=== PATIENT | female | born 1930 | race Caucasian/White ===

== ENCOUNTER 2016-08-15 11:00 | Observation (INO) | payer MEDICARE ==
[~2016-08-15] VITALS: Ht 152.4 cm; Wt 77.0 kg
[2016-08-15] VITALS (7 sets, daily range): BP systolic 149–205; BP diastolic 70–88; PULSE 68–89; RESP 17–18; TEMP 97.7–99.2; O2SAT 96–99
[~2016-08-15 11:00] MED LIST: ASPI81TA82 PO; CARV6.252 PO; EZET10 PO; HYDR-2768 PO; ISOS60TA PO; LOSA25 PO; NITR0.4S SL; PANT40IN3 PO; ROSU40 PO; TICA90 PO
[2016-08-15] MEDS: SODIUM CHLORIDE 0.9% FLUSH 10 ML FLUSH IVF PRN ×2 (11:15→13:53)
--- NOTE | 2016-08-15 11:19 | PD ---
HPI Chief Complaint: Chest Pain Time Seen by Provider: 11:20 Travel History International Travel<30 days: No Contact w/Intl Traveler<30days: No Traveled to known affect area: No History of Present Illness HPI 86-year-old female with known history of coronary artery disease with previous cabg, pci, presents for evaluation of chest pain. Symptoms started sometime during the night several hours ago. She describes it as a sharp pain in the right lower portion of her chest inferior to her breast which comes and goes, lasting about 1 minute each time. No obvious aggravating or alleviating factors initially. She denies any associated symptoms such as shortness of breath, nausea or vomiting, abdominal pain, fevers or chills, flank pain, diaphoresis. She does endorse a dry cough. The pain does not radiate into her back, arms, neck. Her coding clerk is Dr. Alves. Her primary care physician is Dr. Gonzalez. No other complaints. PFSH Past Medical History Hx Anticoagulant Therapy: Yes (ASA, BRILINTA ) Arthritis: Yes Cancer: No Cardiac Catheterization: Yes Cardiovascular Problems: Yes High Cholesterol: Yes Chest Pain: Yes Diminished Hearing: No Endocrine: No Genitourinary: No Hypertension: Yes Immune Disorder: No Musculoskeletal: Yes Neurologic: No Reproductive: No Respiratory: No Menopausal: Yes Past Surgical History Appendectomy: Yes Cardiac Surgery: Yes (REMOVAL OF PERICARDIUM) Coronary Stent: Yes (X5) Tonsillectomy: Yes Other Surgery: Yes Social History Alcohol Use: No Tobacco Use: No Substance Use: No Allergies-Medications (Allergen,Severity, Reaction): Coded Allergies: No Known Allergies (Unverified , 08/15/16) Reported Meds & Prescriptions Reported Meds & Active Scripts Active Reported Pantoprazole (Pantoprazole Sodium) 40 Mg Tab 40 Mg PO DAILY Brilinta (Ticagrelor) 90 Mg Tab 90 Mg PO DAILY Aspirin 81 Mg Tabdr 81 Mg PO DAILY Carvedilol 6.25 Mg Tab 6.25 Mg PO BID Isosorbide Mononitrate ER (Isosorbide Mononitrate) 60 Mg Tab 60 Mg PO DAILY Zetia (Ezetimibe) 10 Mg Tab 10 Mg PO DAILY Losartan (Losartan Potassium) 25 Mg Tab 25 Mg PO DAILY Hydrochlorothiazide 25 Mg Tab 25 Mg PO DAILY Nitrostat SL (Nitroglycerin) 0.4 Mg Subl 0.4 Mg SL DIRECTED PRN 1 tablet under the tongue as needed for chest pain. Repeat every 5 minutes for a total of 3 DOSES or call 911 if NO relief. Crestor (Rosuvastatin Calcium) 40 Mg Tab 40 Mg PO DAILY Review of Systems Except as stated in HPI: all other systems reviewed are Neg Physical Exam Narrative GENERAL: Pleasant well-developed well-nourished female in no acute distress SKIN: Warm and dry. HEAD: Atraumatic. Normocephalic. EYES: Pupils equal and round. No scleral icterus. No injection or drainage. ENT: No nasal bleeding or discharge. Mucous membranes pink and moist. NECK: Trachea midline. No JVD. CARDIOVASCULAR: Regular rate and rhythm. No murmur appreciated. RESPIRATORY: No accessory muscle use. Clear to auscultation. Breath sounds equal bilaterally. GASTROINTESTINAL: Abdomen soft, focal right upper quadrant tenderness to palpation without guarding. MUSCULOSKELETAL: No obvious deformities. No edema. There is some tenderness to palpation to the right lower chest wall inferior to the breast. No rashes. NEUROLOGICAL: Awake and alert. No obvious cranial nerve deficits. Motor grossly within normal limits. Normal speech. PSYCHIATRIC: Appropriate mood and affect; insight and judgment normal. Data Data Last Documented VS Vital Signs Date Time Temp Pulse Resp B/P Pulse Ox O2 Delivery O2 Flow Rate FiO2 08/15/16 12:39 98.0 82 17 172/71 99 Room Air Orders Electrocardiogram (08/15/16 ) Electrocardiogram (08/15/16 11:15) Basic Metabolic Panel (Bmp) (08/15/16 11:15) Ckmb (Isoenzyme) Profile (08/15/16 11:15) Complete Blood Count With Diff (08/15/16 11:15) Magnesium (Mg) (08/15/16 11:15) Prothrombin Time / Inr (Pt) (08/15/16 11:15) Act Partial Throm Time (Ptt) (08/15/16 11:15) Troponin I (08/15/16 11:15) Lipase (08/15/16 11:15) Chest, Single Ap (08/15/16 11:15) Ecg Monitoring (08/15/16 11:15) Bilateral Bp Monitoring (08/15/16 11:15) Iv Access Insert/Monitor (08/15/16 11:15) Oximetry (08/15/16 11:15) Oxygen Administration (08/15/16 11:15) Sodium Chloride 0.9% Flush (Ns Flush) (08/15/16 11:15) Hepatic Functional Panel (08/15/16 11:24) D-Dimer (08/15/16 11:25) Us Abdomen Gallbladder (08/15/16 ) Aspirin Chew (Aspirin Chew) (08/15/16 11:30) Ct Pulmonary Angiogram (08/15/16 12:16) Iohexol 350 Inj (Omnipaque 350 Inj) (08/15/16 13:12) Labs Laboratory Tests Test 08/15/16 08/15/16 11:15 11:18 Prothrombin Time 9.7 SEC Prothromb Time International 0.9 RATIO Ratio Activated Partial 22.9 SEC Thromboplast Time White Blood Count 7.2 TH/MM3 Red Blood Count 5.01 MIL/MM3 Hemoglobin 13.8 GM/DL Hematocrit 41.4 % Mean Corpuscular Volume 82.7 FL Mean Corpuscular Hemoglobin 27.6 PG Mean Corpuscular Hemoglobin 33.4 % Concent Red Cell Distribution Width 16.2 % Platelet Count 256 TH/MM3 Mean Platelet Volume 7.3 FL Neutrophils (%) (Auto) 52.4 % Lymphocytes (%) (Auto) 33.2 % Monocytes (%) (Auto) 11.3 % Eosinophils (%) (Auto) 2.2 % Basophils (%) (Auto) 0.9 % Neutrophils # (Auto) 3.8 TH/MM3 Lymphocytes # (Auto) 2.4 TH/MM3 Monocytes # (Auto) 0.8 TH/MM3 Eosinophils # (Auto) 0.2 TH/MM3 Basophils # (Auto) 0.1 TH/MM3 CBC Comment DIFF FINAL Differential Comment D-Dimer Quantitative (PE/DVT) 2.20 MG/L FEU Sodium Level 141 MEQ/L Potassium Level 4.0 MEQ/L Chloride Level 107 MEQ/L Carbon Dioxide Level 26.0 MEQ/L Anion Gap 8 MEQ/L Blood Urea Nitrogen 16 MG/DL Creatinine 0.86 MG/DL Estimat Glomerular Filtration 62 ML/MIN Rate Random Glucose 103 MG/DL Calcium Level 8.8 MG/DL Magnesium Level 2.4 MG/DL Total Bilirubin 0.4 MG/DL Direct Bilirubin 0.1 MG/DL Indirect Bilirubin 0.3 MG/DL Aspartate Amino Transf 23 U/L (AST/SGOT) Alanine Aminotransferase 21 U/L (ALT/SGPT) Alkaline Phosphatase 127 U/L Total Creatine Kinase 96 U/L Troponin I LESS THAN 0.02 NG/ML Total Protein 7.3 GM/DL Albumin 3.4 GM/DL Lipase 221 U/L MDM Medical Decision Making Medical Screen Exam Complete: Yes Emergency Medical Condition: Yes Medical Record Reviewed: Yes Interpretation(s) EKG reveals normal sinus rhythm, no ST depression/elevation Chest x-ray CBC unremarkable BMP unremarkable Troponin negative CK negative D-dimer 2.2 CT pulmonary angiogram CONCLUSION: 1. No evidence for pulmonary embolism. 2. Minimal lingular consolidation could be related to parenchymal scarring. 3. Nodular scarring right lower lobe laterally. 4. 5 mm nodule right lower lobe, likely benign. 5. Coronary artery calcifications. 6. Small hiatal hernia. Differential Diagnosis Costochondritis, biliary colic, cholecystitis, pericarditis, myocarditis, acute coronary syndrome, unstable angina, myocarditis, pneumothorax, pulmonary embolism Narrative Course 86-year-old female presents with several hours of right-sided lower chest pain, intermittent in frequency. On examination the pain does appear to have a pleuritic component and therefore d-dimer has been added on. She does have reproducible tenderness to palpation the right upper quadrant of the abdomen as well as the right side lower chest wall. The patient was placed on ECG monitoring and pulse oximetry. 12-lead EKG was obtained. plan is for basic lab work, chest x-ray, right upper quadrant abdominal ultrasound. D-dimer was elevated at 2.2. Therefore CT pulmonary angiogram has been ordered. 1220: On reexamination the patient is denying any pain or any other symptoms right now. 1342: Upon reexamination the patient has returned, she reports that it has been waxing and waning. Therefore morphine has been ordered. The patient's lab work imaging studies have been reviewed and they reveal no acute abnormalities. Given her age, history of coronary disease, discussed with patient the option of being admitted to the chest pain center and she would prefer that. Therefore the patient is being admitted to the chest pain center for serial cardiac enzymes and rule out purposes. Procedures EKG Prior to Arrival: Yes Diagnosis Primary Impression: Atypical chest pain Admitting Information Admitting Physician Requests: Misha Hayes August 15, 2016 11:19
[2016-08-15] MEDS ORDERED: ASPI1TAB69 PO (11:30)
[2016-08-15] MEDS ORDERED: CARV6.252 PO (11:30)
[2016-08-15] MEDS ORDERED: ROSU40 PO (11:30)
[2016-08-15] MEDS ORDERED: ISOS60TA PO (11:30)
[2016-08-15] MEDS ORDERED: ZETI10TA5 PO (11:30)
[2016-08-15] MEDS ORDERED: BRIL90TA PO (11:30)
[2016-08-15] MEDS ORDERED: NITR0.4S SL (11:30)
[2016-08-15] MEDS ORDERED: PANT40TA3 PO (11:30)
[2016-08-15] MEDS ORDERED: HYDR25TA5 PO (11:30)
[2016-08-15] MEDS ORDERED: ASPIRIN 81 MG CHEW TAB PO ONE (11:30)
[2016-08-15] MEDS ORDERED: LOSA25TA PO (11:30)
--- NOTE | 2016-08-15 11:43 | RADRPT ---
EXAM DATE/TIME: 08/15/2016 11:21 [facility] COMPARISON: CHEST SINGLE AP, January 16, 2016, 13:38. INDICATIONS : Epigastric pain for several. MEDICAL HISTORY : Cardiovascular disease. Hypercholesterolemia. SURGICAL HISTORY : Appendectomy. Coronary artery stent. Removal of pericardium. ENCOUNTER: Initial ACUITY: 2 days PAIN SCORE: 8/10 LOCATION: Bilateral chest FINDINGS: A single view of the chest demonstrates the lungs to be symmetrically aerated without evidence of mas s, infiltrate or effusion. Cardiomegaly and previous CABG. The cardiomediastinal contours are unremar kable. Osseous structures are intact. CONCLUSION: Cardiomegaly and previous CABG. Isidoro Key MD on August 15, 2016 at 11:41 Board Certified Radiologist. This report was verified electronically.
[2016-08-15 11:45] LABS: AUTOMATED NEUTROPHIL # 3.8 TH/MM3 (1.8-7.7); BASOPHIL # 0.1 TH/MM3 (0-0.2); BASOPHIL % 0.9 % (0.0-2.0); EOSINOPHIL # 0.2 TH/MM3 (0-0.4); EOSINOPHIL % 2.2 % (0.0-4.0); HEMATOCRIT 41.4 % (35.0-46.0); HEMO FLAGS DIFF FINAL; LYMPH % 33.2 % (9.0-44.0); LYMPHOCYTE # 2.4 TH/MM3 (1.0-4.8); MEAN CELL VOLUME 82.7 FL (80.0-100.0); MEAN CORPUSCULAR HEMOGLOBIN 27.6 PG (27.0-34.0); MEAN CORPUSCULAR HGB CONC 33.4 % (32.0-36.0); MONO % 11.3 % (0.0-8.0); NEUT % 52.4 % (16.0-70.0); PLATELET COUNT 256 TH/MM3 (150-450); RED BLOOD COUNT 5.01 MIL/MM3 (4.00-5.30); RED CELL DISTRIBUTION WIDTH 16.2 % (11.6-17.2); WHITE BLOOD COUNT 7.2 TH/MM3 (4.0-11.0)
[2016-08-15 12:01] LABS: INDIRECT BILIRUBIN 0.3 MG/DL (0.0-0.8); TOTAL BILIRUBIN ADULT 0.4 MG/DL (0.2-1.0)
[2016-08-15 12:01] LABS: APTT (PATIENT) 22.9 SEC (24.3-30.1); INTERNATIONAL NORMALIZED RATIO 0.9 RATIO; PROTHROMBIN TIME - PATIENT 9.7 SEC (9.8-11.6)
[2016-08-15 12:09] LABS: ANION GAP 8 MEQ/L (5-15); BLOOD UREA NITROGEN 16 MG/DL (7-18); CHLORIDE 107 MEQ/L (98-107); GLOMERULAR FILTRATION RATE 62 ML/MIN (>89); MAGNESIUM 2.4 MG/DL (1.5-2.5); SODIUM (NA) 141 MEQ/L (136-145)
[2016-08-15 12:13] LABS: CREATINE KINASE 96 U/L (26-192)
--- NOTE | 2016-08-15 12:47 | RADRPT ---
EXAM DATE/TIME: 08/15/2016 11:41 [facility] COMPARISON: No previous studies available for comparison. INDICATIONS : Right upper quadrant pain. MEDICAL HISTORY : Hypertension. Cardiovascular disease. Hypercholesterolemia. SURGICAL HISTORY : Appendectomy. Cholecystectomy. Cardiac stents. ENCOUNTER: Initial ACUITY: 1 day PAIN SCORE: 8/10 LOCATION: Right upper quadrant MEASUREMENTS: LIVER: 14.3 cm length COMMON DUCT: 4 mm RIGHT KIDNEY: 9.1 x 4.4 x 4.6 cm FINDINGS: LIVER: Normal echotexture without focal lesion or ductal dilatation. COMMON DUCT: No intraluminal mass or stone visualized. GALLBLADDER: Contains no stones, demonstrates no wall thickening or pericholecystic fluid. PANCREAS: The visualized portions are within normal limits. RIGHT KIDNEY: No evidence of hydronephrosis, stone, or mass. CONCLUSION: Normal examination. Riaz Godwin MD on August 15, 2016 at 12:43 Board Certified Radiologist. This report was verified electronically.
[2016-08-15] MEDS ORDERED: IOHEXOL 350 MG/ML 10 ML VIAL (for RAD DIAG) IV ONE (13:12)
--- NOTE | 2016-08-15 13:36 | RADRPT ---
EXAM DATE/TIME: 08/15/2016 13:09 [facility] COMPARISON: CT PULMONARY ANGIOGRAM, January 12, 2016, 17:59. INDICATIONS : Right sided chest pain since yesterday,evaluate for pulmonary emoblism. IV CONTRAST: 55 cc Omnipaque 350 (iohexol) IV RADIATION DOSE: 10.09 CTDIvol (mGy) MEDICAL HISTORY : Cardiovascular disease. Hypertension. SURGICAL HISTORY : Appendectomy. ENCOUNTER: Initial ACUITY: 2 days PAIN SCALE: 2/10 LOCATION: Right chest TECHNIQUE: Volumetric scanning of the chest was performed using a pulmonary embolism protocol MIP images were re constructed. Using automated exposure control and adjustment of the mA and/or kV according to patien t size, radiation dose was kept as low as reasonably achievable to obtain optimal diagnostic quality images. FINDINGS: PULMONARY ARTERIES: No filling defects are seen in the pulmonary arteries through the segmental level. LUNGS: There is minimal lingular consolidation. Nodular parenchymal density right lower lobe laterally is u nchanged. Scarring left lower lobe. 5 mm nodule right lower lobe. PLEURAE: There is no pleural thickening or pleural effusion. MEDIASTINUM: There is good visualization of the great vessels of the middle mediastinum. No evidence of mediastin al or hilar adenopathy/mass. Coronary artery calcifications. MUSCULOSKELETAL: Within normal limits for patient age. MISCELLANEOUS: The visualized upper abdominal organs demonstrate no acute abnormality. CONCLUSION: 1. No evidence for pulmonary embolism. 2. Minimal lingular consolidation could be related to parenchymal scarring. 3. Nodular scarring right lower lobe laterally. 4. 5 mm nodule right lower lobe, likely benign. 5. Coronary artery calcifications. 6. Small hiatal hernia. Isidoro Key MD on August 15, 2016 at 13:30 Board Certified Radiologist. This report was verified electronically.
[2016-08-15] MEDS ORDERED: MORPHINE SULFATE 4 MG/ML INJ IV PUSH ONE (13:45)
[2016-08-15] MEDS ORDERED: NITROGLYCERIN 0.4 MG SL 25 TABS/BTL SL PRN (14:30)
[2016-08-15] MEDS ORDERED: ACETAMINOPHEN 500 MG CPLT PO PRN (14:30)
[2016-08-15] MEDS ORDERED: ONDANSETRON HCL 4 MG/2 ML VIAL IV PRN (14:30)
[2016-08-15 15:32] LABS: CREATINE KINASE 85 U/L (26-192)
--- NOTE | 2016-08-15 16:08 | HHI.HP ---
HPI Primary Care Physician Josiah Alves MD Chief Complaint Chest pain History of Present Illness 86-year-old female with known coronary artery disease, hypertension, 5 cardiac stents, and hyperlipidemia presents to emergency room for further evaluation of chest pain. Onset last evening around 9 PM. Location right inframammary area radiating to right side and lower quadrant. Initially pain was intermittent however upon awakening pain has been constant. Patient was able to sleep throughout the night. Breathing makes pain worse. Movement or position does not make pain better or worse. No associated symptoms. No known precipitating or relieving factors. She has never had similar pain in the past. Review of Systems General: No fatigue,weakness, fever, chills, recent illness, or change in appetite. Endorses increasing fatigue over the past few weeks. HEENT: No CEE, no vision changes CV: As stated above. Continues to have chest pain as stated above. No dizziness. RESP: No SOB, cough, wheeze, or recent URI. GI: No nausea, vomiting, bowel changes, diarrhea, or pain. : No dysuria, urgency, frequency EXT: No lower leg edema, no paraesthesias MS: No discomfort or change in ROM NEURO: No change in memory, dizziness, difficulty with balance, LOC, motor/ sensory deficits PSYCH: No anxiety, depression SKIN: No rashes, no concerning lesions Past Family Social History Allergies: Coded Allergies: No Known Allergies (Unverified , 08/15/16) Past Medical History Coronary artery disease, 5 stents, hypertension, CVA, carotid arterial stenosis , hyperlipidemia, proximal A. fib Past Surgical History Left [id number], appendectomy, pericardiectomy status post [id number] Reported Medications Reported Pantoprazole (Pantoprazole Sodium) 40 Mg Tab 40 Mg PO DAILY Brilinta (Ticagrelor) 90 Mg Tab 90 Mg PO DAILY Aspirin 81 Mg Tabdr 81 Mg PO DAILY Carvedilol 6.25 Mg Tab 6.25 Mg PO BID Isosorbide Mononitrate ER (Isosorbide Mononitrate) 60 Mg Tab 60 Mg PO DAILY Zetia (Ezetimibe) 10 Mg Tab 10 Mg PO DAILY Losartan (Losartan Potassium) 25 Mg Tab 25 Mg PO DAILY Hydrochlorothiazide 25 Mg Tab 25 Mg PO DAILY Nitrostat SL (Nitroglycerin) 0.4 Mg Subl 0.4 Mg SL DIRECTED PRN 1 tablet under the tongue as needed for chest pain. Repeat every 5 minutes for a total of 3 DOSES or call 911 if NO relief. Crestor (Rosuvastatin Calcium) 40 Mg Tab 40 Mg PO DAILY Active Ordered Medications Current Medications Medications (Trade) Dose Ordered Sig/Tata Route Start Time Stop Time Status Last Admin (NS Flush) 2 ml UNSCH PRN IVF 08/15/16 11:15 08/15/16 13:53 (NS Flush) 2 ml BID IV FLUSH 08/15/16 21:00 (Tylenol) 500 mg Q4H PRN PO 08/15/16 14:30 (Zofran Inj) 4 mg Q6H PRN IV 08/15/16 14:30 (Nitrostat Sl) 0.4 mg Q5M PRN SL 08/15/16 14:30 (Aspirin) 325 mg DAILY PO 08/16/16 09:00 Family History Noncontributory for early onset cardiovascular disease. Social History Known hypertension and hyperlipidemia. No known diabetes. Personal history of coronary artery disease including 5 stents. [place] lifelong nonsmoker, denies any alcohol or illegal drug use. States she generally is quite active over the past 2 weeks and more fatigued than usual. . Past cardiac testing 01/13/16 cardiac catheterization-Conclusion (Dr. Padilla) 1. Successful PCI osteal right coronary artery. 01/09/16 cardiac catheterizationconclusion (Dr. Alves) 1. Moderate to severe three-vessel coronary artery disease. 2. Right dominant system. 3. Normal ventricular function with estimated ejection fraction of 6065 percent. Consult was placed to cardiothoracic surgeon. Per records patient and family requested further PCI attempt versus bypass surgery. Patient's solution sales senior executive is Dr. Alves. No recent cardiac testing. Physical Exam Vital Signs Vital Signs Date Time Temp Pulse Resp B/P Pulse Ox O2 Delivery O2 Flow Rate FiO2 08/15/16 15:45 98.2 71 17 149/81 96 08/15/16 15:00 97.8 79 16 167/72 99 08/15/16 13:57 16 08/15/16 13:53 97.7 68 17 158/72 99 Room Air 08/15/16 12:39 98.0 82 17 172/71 99 Room Air 08/15/16 11:21 17 98 Room Air 08/15/16 11:21 98 Room Air 08/15/16 11:16 87 17 99 Room Air 08/15/16 11:15 89 17 205/88 98 Room Air 166/70 08/15/16 11:02 99.2 75 18 194/86 98 Room Air Physical Exam GENERAL: Alert WN, WD, NAD, pleasant, elderly female HEAD: NC, AT EYES: Sclera clear, pupils equal and round NECK: Supple, no masses, trachea midline CV: RRR, without murmur, rub, gallop, no JVD, S1-S2 no S3-S4. RESP: Clear lungs throughout bilateral, no crackles, wheeze, rhonchi, symmetrical chest rise, nonlabored, able to speak in full sentences ABD: Soft, NT, ND, no masses, positive bowel tones EXT: Pulses +24, no dependent edema MS: Normal tone 4 extremities, nontender, no obvious deformities, full range of motion NEURO: CN II through CN XII grossly intact, motor strength 5/5, gait WNL PSYCH: A+O 3, pleasant affect, appropriate speech, appropriate mood and affect , insight and judgment SKIN: Normal turgor, normal texture, no lesions, no rashes Laboratory Laboratory Tests Test 08/15/16 08/15/16 08/15/16 11:15 11:18 15:00 Prothrombin Time 9.7 Prothromb Time International 0.9 Ratio Activated Partial 22.9 Thromboplast Time White Blood Count 7.2 Red Blood Count 5.01 Hemoglobin 13.8 Hematocrit 41.4 Mean Corpuscular Volume 82.7 Mean Corpuscular Hemoglobin 27.6 Mean Corpuscular Hemoglobin 33.4 Concent Red Cell Distribution Width 16.2 Platelet Count 256 Mean Platelet Volume 7.3 Neutrophils (%) (Auto) 52.4 Lymphocytes (%) (Auto) 33.2 Monocytes (%) (Auto) 11.3 Eosinophils (%) (Auto) 2.2 Basophils (%) (Auto) 0.9 Neutrophils # (Auto) 3.8 Lymphocytes # (Auto) 2.4 Monocytes # (Auto) 0.8 Eosinophils # (Auto) 0.2 Basophils # (Auto) 0.1 CBC Comment DIFF FINAL Differential Comment D-Dimer Quantitative (PE/DVT) 2.20 Sodium Level 141 Potassium Level 4.0 Chloride Level 107 Carbon Dioxide Level 26.0 Anion Gap 8 Blood Urea Nitrogen 16 Creatinine 0.86 Estimat Glomerular Filtration 62 Rate Random Glucose 103 Calcium Level 8.8 Magnesium Level 2.4 Total Bilirubin 0.4 Direct Bilirubin 0.1 Indirect Bilirubin 0.3 Aspartate Amino Transf 23 (AST/SGOT) Alanine Aminotransferase 21 (ALT/SGPT) Alkaline Phosphatase 127 Total Creatine Kinase 96 85 Troponin I LESS THAN 0.02 LESS THAN 0.02 Total Protein 7.3 Albumin 3.4 Lipase 221 Result Diagram: 08/15/16 1118 08/15/[address] Angiography 08/15/16 1216 Signed Impressions: Service Date/Time: Monday, August 15, 2016 13:09 - CONCLUSION: 1. No evidence for pulmonary embolism. 2. Minimal lingular consolidation could be related to parenchymal scarring. 3. Nodular scarring right lower lobe laterally. 4. 5 mm nodule right lower lobe, likely benign. 5. Coronary artery calcifications. 6. Small hiatal hernia. Isidoro Key MD Chest X-Ray 08/15/16 1115 Signed Impressions: Service Date/Time: Monday, August 15, 2016 11:21 - CONCLUSION: Cardiomegaly and previous CABG. Isidoro Key MD Gall Bladder Ultrasound 08/15/16 0000 Signed Impressions: Service Date/Time: Monday, August 15, 2016 11:41 - CONCLUSION: Normal examination. Riaz Godwin MD Course EKG 2 EKGs show normal sinus rhythm, left axis deviation, no ST or T-segment changes Assessment and Plan Assessment and Plan #1 Chest painadmitted to chest pain center. Seen and evaluated by Dr. Srini Becerra. Will rule out 3 sets of EKGs, cardiac enzymes, and monitor overnight. Dr. Srini Becerra attempted to call patient's solution sales senior executive, . Will attempt to call solution sales senior executive again in a.m. to discuss plan of care. If ruled out, most likely will complete a chemical stress test in a.m. #2 Coronary artery diseasecontinue Brilinta, isosorbide, carvedilol, Crestor, and aspirin #3 Hypertensioncontinue losartan and HCTZ #4 Hyperlipidemiacontinue Zetia and Crestor 17:40-Call received from Dr. Srini Becerra. Dr. Becerra spoke with Dr. Alves. Patient had a normal chemical stress test one month ago. Will discharge patient this evening. Follow up with primary and solution sales senior executive upon discharge. Daphne Florence August 15, 2016 16:07
--- NOTE | 2016-08-15 17:53 | HHI.DCPOC ---
Discharge Care Plan Diagnosis: (1) Atypical chest pain (2) CAD (coronary artery disease) (3) HTN (hypertension) (4) Hyperlipidemia Goals to Promote Your Health * To prevent worsening of your condition and complications * To maintain your health at the optimal level Directions to Meet Your Goals Take your medications as prescribed Follow your dietary instruction Follow activity as directed Keep your appointments as scheduled Take your immunizations and boosters as scheduled If your symptoms worsen call your PCP, if no PCP go to Urgent Care Center or Emergency Room Smoking is Dangerous to Your Health. Avoid second hand smoke Call the 24-hour hour crisis hotline for domestic abuse at Daphne Florence August 15, 2016 17:53
[2016-08-15] MEDS ORDERED: SODIUM CHLORIDE 0.9% FLUSH 10 ML FLUSH IV FLUSH SCH (21:00)
[2016-08-15] MEDS ORDERED: CARVEDILOL 6.25 MG TAB PO SCH (21:00)
[2016-08-16] MEDS ORDERED: PANTOPRAZOLE SOD 40 MG DELAYED RELEASE TAB PO SCH (09:00)
[2016-08-16] MEDS ORDERED: HYDROCHLOROTHIAZIDE 25 MG TAB PO SCH (09:00)
[2016-08-16] MEDS ORDERED: ISOSORBIDE MONONITRATE 60 MG TAB PO SCH (09:00)
[2016-08-16] MEDS ORDERED: TICAGRELOR 90 MG TAB PO SCH (09:00)
[2016-08-16] MEDS ORDERED: ATORVASTATIN 80 MG TAB PO SCH (09:00)
[2016-08-16] MEDS ORDERED: LOSARTAN 25 MG TAB PO SCH (09:00)
[2016-08-16] MEDS ORDERED: ASPIRIN 325 MG TAB PO SCH (09:00)
[2016-08-16] MEDS ORDERED: EZETIMIBE 10 MG TAB PO SCH (09:00)
--- NOTE | 2016-08-16 17:31 | EKG ---
Date Performed: 08/15/2016 Time Performed: 15:03:45 PTAGE: 86 years EKG: Sinus rhythm WITH SINUS ARRHYTHMIA BORDERLINE LEFT AXIS DEVIATION POSSIBLE RIGHT VENTRICULAR CONDUCTION DELAY BOR DERLINE ECG PREVIOUS TRACING : 08/15/2016 11.15 Compared to prior tracing no significant change DOCTOR: Margarito Holt Interpretating Date/Time 08/16/2016 17:30:30
--- NOTE | 2016-08-16 17:41 | EKG ---
Date Performed: 08/15/2016 Time Performed: 11:15:37 PTAGE: 86 years EKG: Sinus rhythm BORDERLINE LEFT AXIS DEVIATION POSSIBLE RIGHT VENTRICULAR CONDUCTION DELAY BORDERLINE ECG PREVIOUS TRACING : 08/15/2016 11.14 Compared to prior tracing no significant change DOCTOR: Margarito Holt Interpretating Date/Time 08/16/2016 17:38:50
--- NOTE | 2016-08-16 17:41 | EKG ---
Date Performed: 08/15/2016 Time Performed: 11:14:35 PTAGE: 86 years EKG: Sinus rhythm WITH SINUS ARRHYTHMIA BORDERLINE LEFT AXIS DEVIATION POSSIBLE RIGHT VENTRICULAR CONDUCTION DELAY BOR DERLINE ECG Compared to prior tracing no significant change DOCTOR: Margarito Holt Interpretating Date/Time 08/16/2016 17:39:11
== END 2016-08-15 18:59 | disposition home or self-care (01) ==
LOC: NEPC 11:00 → NEDA 13:45 → NEPFCDU 15:27
PROVIDERS: ADMIT Internal Medicine Cardiovascular Disease; ATTEND Internal Medicine Cardiovascular Disease
DX: R07.89 Other chest pain (principal); I25.10 Atherosclerotic heart disease of native coronary artery without angina pectoris; I10 Essential (primary) hypertension; E78.5 Hyperlipidemia, unspecified; I48.0 Paroxysmal atrial fibrillation; E78.00 Pure hypercholesterolemia, unspecified; M19.90 Unspecified osteoarthritis, unspecified site; Z95.5 Presence of coronary angioplasty implant and graft; Z86.73 Personal history of transient ischemic attack (TIA), and cerebral infarction without residual deficits; Z79.82 Long term (current) use of aspirin
CPT/HCPCS: 71010; 71275; 76705; 80048; 80076; 82550; 83690; 83735; 84484; 85025; 85379; 85610; 85730; 93005; 99285; G0378; J2270; Q9967

== ENCOUNTER 2016-08-29 17:03 | Emergency (ER) | payer MEDICARE ==
[~2016-08-29] VITALS: Ht 152.4 cm; Wt 77.0 kg
[~2016-08-29 17:03] MED LIST changes: +ASPI1TAB69 PO; -ASPI81TA82 PO; +BRIL90TA PO; -EZET10 PO; -HYDR-2768 PO; +HYDR25TA5 PO; -LOSA25 PO; +LOSA25TA PO; -PANT40IN3 PO; +PANT40TA3 PO; -TICA90 PO; +ZETI10TA5 PO
[2016-08-29 17:04] VITALS: BP 181/80; PULSE 79; RESP 18; TEMP 99.2; O2SAT 97
--- NOTE | 2016-08-29 17:17 | PD ---
Physical Exam Time Seen by Provider: 17:14 Narrative 86yo F c/o LUQ abd pain. +cough and wheeze for a couple weeks. Denies SOB, fever, vomiting. Patient seen in triage. VS reviewed. Awaiting bed placement. Data Data Last Documented VS Vital Signs Date Time Temp Pulse Resp B/P Pulse Ox O2 Delivery O2 Flow Rate FiO2 08/29/16 17:04 99.2 79 18 181/80 97 Room Air MDM Supervised Visit with MARCELLUS: Jennifer Cantu Aug 29, 2016 17:17
--- NOTE | 2016-08-29 17:35 | PD ---
HPI Chief Complaint: Abdominal Pain Time Seen by Provider: 17:33 Travel History International Travel<30 days: No Contact w/Intl Traveler<30days: No Traveled to known affect area: No History of Present Illness HPI 86 YO female with PMH of HTN, HLD, CAD S/P stents 5 presents to the ED for evaluation of sudden onset 8/10 left flank and upper quadrant pain. Onset at rest. Described as constant. Patient denies fever, chills, palpitations, shortness of breath, abdominal pain, nausea, vomiting, dysuria, back pain. The patient states that she went to [employer] and had lunch with a friend today before symptoms onset. She treated with a single dose of nitroglycerin at home with no improvement of her symptoms. PFSH Past Medical History Hx Anticoagulant Therapy: Yes Arthritis: Yes Cancer: No Cardiac Catheterization: Yes (Stents X5) Cardiovascular Problems: Yes (stents) High Cholesterol: Yes Chest Pain: Yes Congestive Heart Failure: No Diabetes: No Diminished Hearing: No Endocrine: No Genitourinary: No Hypertension: Yes Immune Disorder: No Musculoskeletal: Yes Neurologic: No Reproductive: No Respiratory: No Menopausal: Yes Past Surgical History Appendectomy: Yes Cardiac Surgery: Yes (REMOVAL OF PERICARDIUM) Coronary Artery Bypass Graft: No Coronary Stent: Yes (X5) Tonsillectomy: Yes Other Surgery: Yes Social History Alcohol Use: No Tobacco Use: No Substance Use: No Allergies-Medications (Allergen,Severity, Reaction): Coded Allergies: No Known Allergies (Unverified , 08/29/16) Reported Meds & Prescriptions Reported Meds & Active Scripts Active Reported Pantoprazole (Pantoprazole Sodium) 40 Mg Tab 40 Mg PO DAILY Brilinta (Ticagrelor) 90 Mg Tab 90 Mg PO DAILY Carvedilol 6.25 Mg Tab 6.25 Mg PO BID Isosorbide Mononitrate ER (Isosorbide Mononitrate) 60 Mg Tab 60 Mg PO DAILY Zetia (Ezetimibe) 10 Mg Tab 10 Mg PO DAILY Losartan (Losartan Potassium) 25 Mg Tab 25 Mg PO DAILY Hydrochlorothiazide 25 Mg Tab 25 Mg PO DAILY Nitrostat SL (Nitroglycerin) 0.4 Mg Subl 0.4 Mg SL DIRECTED PRN 1 tablet under the tongue as needed for chest pain. Repeat every 5 minutes for a total of 3 DOSES or call 911 if NO relief. Crestor (Rosuvastatin Calcium) 40 Mg Tab 40 Mg PO DAILY Review of Systems Except as stated in HPI: all other systems reviewed are Neg Physical Exam Narrative GENERAL: Well-nourished, well-developed obese white female in no acute distress. SKIN: Focused skin assessment warm/dry. HEAD: Normocephalic. EYES: No scleral icterus. No injection or drainage. NECK: Supple, trachea midline. No JVD or lymphadenopathy. CARDIOVASCULAR: Regular rate and rhythm without murmurs, gallops, or rubs. CHEST: No deformity or crepitus. Reproducible point tenderness on the left lateral aspect of the lower rib cage. RESPIRATORY: Breath sounds clear and equal bilaterally. No accessory muscle use. GASTROINTESTINAL: Abdomen soft, non-tender, nondistended. Active bowel sounds. MUSCULOSKELETAL: No cyanosis, or edema. Patient is ambulatory and moves extremities spontaneously. BACK: Nontender without obvious deformity. No CVA tenderness. Data Data Last Documented VS Vital Signs Date Time Temp Pulse Resp B/P Pulse Ox O2 Delivery O2 Flow Rate FiO2 08/29/16 20:32 78 16 124/83 96 08/29/16 18:49 Room Air 08/29/16 17:04 99.2 Orders Complete Blood Count With Diff (08/29/16 17:50) Comprehensive Metabolic Panel (08/29/16 17:50) Prothrombin Time / Inr (Pt) (08/29/16 17:50) Act Partial Throm Time (Ptt) (08/29/16 17:50) Urinalysis - C+S If Indicated (08/29/16 17:50) Iv Access Insert/Monitor (08/29/16 17:50) Ecg Monitoring (08/29/16 17:50) Oximetry (08/29/16 17:50) Sodium Chloride 0.9% Flush (Ns Flush) (08/29/16 18:00) Electrocardiogram (08/29/16 17:50) Acetaminophen (Tylenol) (08/29/16 18:00) Chest, Single Ap (08/29/16 17:50) Ckmb (Isoenzyme) Profile (08/29/16 18:15) Troponin I (08/29/16 18:15) Urine Culture (08/29/16 18:30) Labs Laboratory Tests Test 08/29/16 18:30 White Blood Count 7.2 TH/MM3 Red Blood Count 4.33 MIL/MM3 Hemoglobin 12.0 GM/DL Hematocrit 35.6 % Mean Corpuscular Volume 82.2 FL Mean Corpuscular Hemoglobin 27.6 PG Mean Corpuscular Hemoglobin 33.6 % Concent Red Cell Distribution Width 15.4 % Platelet Count 226 TH/MM3 Mean Platelet Volume 7.1 FL Neutrophils (%) (Auto) 53.5 % Lymphocytes (%) (Auto) 31.1 % Monocytes (%) (Auto) 12.0 % Eosinophils (%) (Auto) 2.8 % Basophils (%) (Auto) 0.6 % Neutrophils # (Auto) 3.9 TH/MM3 Lymphocytes # (Auto) 2.2 TH/MM3 Monocytes # (Auto) 0.9 TH/MM3 Eosinophils # (Auto) 0.2 TH/MM3 Basophils # (Auto) 0.0 TH/MM3 CBC Comment DIFF FINAL Differential Comment Prothrombin Time 9.9 SEC Prothromb Time International 0.9 RATIO Ratio Activated Partial 25.1 SEC Thromboplast Time Urine Color YELLOW Urine Turbidity CLEAR Urine pH 5.0 Urine Specific [place] 1.016 Urine Protein NEG mg/dL Urine Glucose (UA) NEG mg/dL Urine Ketones NEG mg/dL Urine Occult Blood NEG Urine Nitrite POS Urine Bilirubin NEG Urine Urobilinogen LESS THAN 2.0 MG/DL Urine Leukocyte Esterase NEG Urine WBC 2 /hpf Urine Squamous Epithelial 1 /hpf Cells Urine Bacteria RARE /hpf Microscopic Urinalysis Comment CULTURE INDICATED Sodium Level 140 MEQ/L Potassium Level 4.0 MEQ/L Chloride Level 106 MEQ/L Carbon Dioxide Level 28.5 MEQ/L Anion Gap 6 MEQ/L Blood Urea Nitrogen 17 MG/DL Creatinine 0.89 MG/DL Estimat Glomerular Filtration 60 ML/MIN Rate Random Glucose 113 MG/DL Calcium Level 8.3 MG/DL Total Bilirubin 0.4 MG/DL Aspartate Amino Transf 19 U/L (AST/SGOT) Alanine Aminotransferase 21 U/L (ALT/SGPT) Alkaline Phosphatase 105 U/L Total Creatine Kinase 84 U/L Troponin I LESS THAN 0.02 NG/ML Total Protein 6.2 GM/DL Albumin 2.9 GM/DL MDM Medical Decision Making Medical Screen Exam Complete: Yes Emergency Medical Condition: Yes Differential Diagnosis Musculoskeletal pain versus costochondritis versus less likely ACS versus Narrative Course 86 YO female with PMH of HTN, HLD, CAD S/P stents 5 presents to the ED for evaluation of sudden onset 8/10 left flank and upper quadrant pain. Onset at rest. Described as constant. Patient denies fever, chills, palpitations, shortness of breath, abdominal pain, nausea, vomiting, dysuria, back pain. The patient states that she went [place] and had lunch with a friend today before symptoms onset. She treated with a single dose of nitroglycerin at home with no improvement of her symptoms. Vitals reviewed in. Physical exam reveals an obese white female in no acute distress. RRR without appreciable M/R/G. Chest is clear to auscultation bilaterally. Abdomen soft, nontender. There is reproducible point tenderness on the lateral aspect of the left sided rib cage. She was administered 650 mg Tylenol by mouth. EKG: rate 76, sinus rhythm with arrhythmia. CT interval 175, QRS 79, QTc 412. Normal axis. No ST elevations or depressions. Reviewed by Dr. Cardenas Cardiac enzymes: negative 1. Chest x-ray: No acute cardiopulmonary disease. WBC: 7.2, hemoglobin 12.0. Coags: INR 0.9. Chemistries: Unremarkable. Review of the patient's record reveals that she was admitted with similar complaint one week ago today. She underwent CT scans, ultrasounds and serial cardiac enzymes and EKGs were all negative at that time. On recheck the patient states that she is bored and she wants to be discharged. She reports excellent improvement of her pain symptoms. The patient's son notes that the similar complaint also occurred on a day when the patient went to water aer[place]ics. The patient is established with multiple physicians and has good follow-up. I feel that this is musculoskeletal pain, possibly costochondritis and that the patient is safe for discharge home. She is instructed to take over -the-counter medications as needed, follow up with her doctor, return for worsening of symptoms. The patient understands and indicated understanding of instructions and are agreeable to the care plan. The patient is stable and discharged home. Diagnosis Primary Impression: Costochondritis Referrals: Dr Dinh Gonzalez Patient Instructions: Costochondritis (ED), General Instructions Additional Instructions: Rest, hydrate. Return to normal, gentle activities as tolerated. [id number] medications such as Tylenol or ibuprofen as described on the label, as needed for continued pain. Follow-up with Dr. Dinh Gonzalez as discussed. Return to the ED for any urgent or emergent medical condition. Disposition: 01 DISCHARGE HOME Condition: Stable Sarah Solitario Aug 29, 2016 17:35
[2016-08-29 17:51] VITALS: BP 100/65; PULSE 80; RESP 16; O2SAT 95
[2016-08-29] MEDS ORDERED: SODIUM CHLORIDE 0.9% FLUSH 10 ML FLUSH IV FLUSH PRN (18:00)
[2016-08-29] MEDS ORDERED: ACETAMINOPHEN 325 MG TAB PO ONE (18:00)
--- NOTE | 2016-08-29 18:40 | RADRPT ---
EXAM DATE/TIME: 08/29/2016 18:14 [facility] COMPARISON: CHEST SINGLE AP, August 15, 2016, 11:21. INDICATIONS : Patient complains of left sided chest pain. MEDICAL HISTORY : Cardiovascular disease. Hypercholesterolemia. SURGICAL HISTORY : Coronary artery stent. Removal of pericardium. ENCOUNTER: Initial ACUITY: 1 day PAIN SCORE: 5/10 LOCATION: Left Chest. FINDINGS: A single view of the chest demonstrates the lungs to be symmetrically aerated without evidence of mas s, infiltrate or effusion. The cardiomediastinal contours are unremarkable. Osseous structures are intact. The patient is again noted to be status post median sternotomy. Overlying electrocardiogram l jocelyn are present. There are costo cartilage calcifications and atherosclerotic calcifications in the aorta. CONCLUSION: Stable appearance status post median sternotomy with no acute cardiopulmonary disease.. Levi Cho MD on August 29, 2016 at 18:37 Board Certified Radiologist. This report was verified electronically.
[2016-08-29 18:49] VITALS: O2SAT 97
[2016-08-29 19:03] LABS: BACTERIA, URINE RARE /hpf; BLOOD, URINE NEG (NEG); COMMENT (UR) CULTURE INDICATED; CULTURE IF INDICATED CULTURE INDICATED; GLUCOSE,URINE NEG (NEG); KETONE, URINE NEG (NEG); NITRITE,URINE POS (NEG); SQUAMOUS EPITHELIAL CELL URINE 1 /hpf (0-5); URINE COLOR YELLOW (YELLW/STRAW)
[2016-08-29 19:04] LABS: AUTOMATED NEUTROPHIL # 3.9 TH/MM3 (1.8-7.7); BASOPHIL % 0.6 % (0.0-2.0); EOSINOPHIL # 0.2 TH/MM3 (0-0.4); EOSINOPHIL % 2.8 % (0.0-4.0); HEMATOCRIT 35.6 % (35.0-46.0); HEMO FLAGS DIFF FINAL; LYMPH % 31.1 % (9.0-44.0); LYMPHOCYTE # 2.2 TH/MM3 (1.0-4.8); MEAN CELL VOLUME 82.2 FL (80.0-100.0); MEAN CORPUSCULAR HEMOGLOBIN 27.6 PG (27.0-34.0); MEAN CORPUSCULAR HGB CONC 33.6 % (32.0-36.0); NEUT % 53.5 % (16.0-70.0); PLATELET COUNT 226 TH/MM3 (150-450); RED BLOOD COUNT 4.33 MIL/MM3 (4.00-5.30); RED CELL DISTRIBUTION WIDTH 15.4 % (11.6-17.2); WHITE BLOOD COUNT 7.2 TH/MM3 (4.0-11.0)
[2016-08-29 19:17] LABS: APTT (PATIENT) 25.1 SEC (24.3-30.1); INTERNATIONAL NORMALIZED RATIO 0.9 RATIO; PROTHROMBIN TIME - PATIENT 9.9 SEC (9.8-11.6)
[2016-08-29 19:21] LABS: ANION GAP 6 MEQ/L (5-15); AST (GOT) 19 U/L (15-37); BICARBONATE 28.5 MEQ/L (21.0-32.0); BLOOD UREA NITROGEN 17 MG/DL (7-18); CHLORIDE 106 MEQ/L (98-107); GLOMERULAR FILTRATION RATE 60 ML/MIN (>89); SODIUM (NA) 140 MEQ/L (136-145)
[2016-08-29 19:22] LABS: ALT (GPT) 21 U/L (10-53)
[2016-08-29 19:24] LABS: ALKALINE PHOSPHATASE 105 U/L (45-117); TOTAL BILIRUBIN ADULT 0.4 MG/DL (0.2-1.0)
[2016-08-29 20:00] LABS: CREATINE KINASE 84 U/L (26-192)
[2016-08-29 20:32] VITALS: BP 124/83
--- NOTE | 2016-08-30 14:07 | EKG ---
Date Performed: 08/29/2016 Time Performed: 17:49:18 PTAGE: 86 years EKG: Sinus rhythm WITH SINUS ARRHYTHMIA BORDERLINE LEFT AXIS DEVIATION POSSIBLE RIGHT VENTRICULAR CONDUCTION DELAY BOR DERLINE ECG Compared to prior tracing no significant change PREVIOUS TRACING 08/15/2016 15.03.45 DOCTOR: Jimy Yoo Interpretating Date/Time 08/30/2016 13:59:20
== END 2016-08-29 21:12 | disposition home or self-care (01) ==
LOC: NEPC 17:03
DX: M94.0 Chondrocostal junction syndrome [Tietze] (principal); E78.00 Pure hypercholesterolemia, unspecified; I10 Essential (primary) hypertension; B96.20 Unspecified Escherichia coli [E. coli] as the cause of diseases classified elsewhere; I49.8 Other specified cardiac arrhythmias
CPT/HCPCS: 71010; 80053; 81001; 82550; 84484; 85025; 85610; 85730; 87077; 87086; 87186; 93005; 99285

== ENCOUNTER 2016-12-28 14:26 | Observation (INO) | payer MEDICARE ==
[2016-12-28] VITALS (7 sets, daily range): BP systolic 91–132; BP diastolic 48–76; PULSE 65–88; RESP 16–17; TEMP 97.8–98.8; O2SAT 93–98
[~2016-12-28] VITALS: Ht 157.5 cm; Wt 78.0 kg
[~2016-12-28 14:26] MED LIST changes: -ASPI1TAB69 PO
--- NOTE | 2016-12-28 14:55 | PD ---
HPI Chief Complaint: lightheadedness Time Seen by Provider: 14:40 Travel History International Travel<30 days: No Contact w/Intl Traveler<30days: No Traveled to known affect area: No History of Present Illness HPI 86-year-old female with history of coronary artery disease, hypertension, hyperlipidemia who presents for evaluation of lightheadedness and vomiting. Just prior to arrival the patient was shopping at [employer] when she became nauseous and vomited one time. She felt lightheaded afterwards and leaned over and then sat in a chair. The lightheadedness lasted for 2-3 minutes and then resolved. She denies any syncope. She denies any trauma. She currently feels better while lying down. She's not currently symptomatic. She denies any episodic chest pain, shortness of breath, headache, blurred vision, abdominal pain, diarrhea, constipation. She has no other complaints at this time. PFSH Past Medical History Hx Anticoagulant Therapy: Yes Arthritis: Yes Cancer: No Cardiac Catheterization: Yes (Stents X5) Cardiovascular Problems: Yes (stents) High Cholesterol: Yes Chest Pain: Yes Congestive Heart Failure: No Diabetes: No Diminished Hearing: No Endocrine: No Gastrointestinal Disorders: No Genitourinary: No Hypertension: No Immune Disorder: No Implanted Vascular Access Dvce: No Musculoskeletal: Yes Neurologic: No Reproductive: No Respiratory: No Menopausal: Yes Past Surgical History Appendectomy: Yes Cardiac Surgery: Yes (REMOVAL OF PERICARDIUM) Coronary Artery Bypass Graft: No Coronary Stent: Yes (X5) Neurologic Surgery: No Tonsillectomy: Yes Other Surgery: Yes Social History Alcohol Use: No Tobacco Use: No Substance Use: No Allergies-Medications (Allergen,Severity, Reaction): Coded Allergies: No Known Allergies (Unverified , 12/28/16) Reported Meds & Prescriptions Reported Meds & Active Scripts Active Reported Aspirin 81 Mg Chew 81 Mg PO DAILY Pantoprazole (Pantoprazole Sodium) 40 Mg Tab 40 Mg PO DAILY Carvedilol 6.25 Mg Tab 6.25 Mg PO BID Isosorbide Mononitrate ER (Isosorbide Mononitrate) 60 Mg Tab 60 Mg PO DAILY Zetia (Ezetimibe) 10 Mg Tab 10 Mg PO DAILY Losartan (Losartan Potassium) 25 Mg Tab 25 Mg PO DAILY Hydrochlorothiazide 25 Mg Tab 25 Mg PO DAILY Nitrostat SL (Nitroglycerin) 0.4 Mg Subl 0.4 Mg SL DIRECTED PRN 1 tablet under the tongue as needed for chest pain. Repeat every 5 minutes for a total of 3 DOSES or call 911 if NO relief. Crestor (Rosuvastatin Calcium) 40 Mg Tab 40 Mg PO DAILY Review of Systems Except as stated in HPI: all other systems reviewed are Neg Physical Exam Narrative GENERAL: Pleasant well-developed well-nourished female in no acute distress resting hospital bed. Vital signs reviewed. SKIN: Warm and dry. HEAD: Atraumatic. Normocephalic. EYES: Pupils equal and round. No scleral icterus. No injection or drainage. ENT: No nasal bleeding or discharge. Mucous membranes pink and moist. NECK: Trachea midline. No JVD. CARDIOVASCULAR: Regular rate and rhythm. No murmur appreciated. RESPIRATORY: No accessory muscle use. Clear to auscultation. Breath sounds equal bilaterally. GASTROINTESTINAL: Abdomen soft, non-tender, nondistended. Hepatic and splenic margins not palpable. MUSCULOSKELETAL: No obvious deformities. No edema. NEUROLOGICAL: Awake and alert. No obvious cranial nerve deficits. Motor grossly within normal limits. Normal speech. PSYCHIATRIC: Appropriate mood and affect; insight and judgment normal. Data Data Last Documented VS Vital Signs Date Time Temp Pulse Resp B/P (MAP) Pulse Ox O2 Delivery O2 Flow Rate FiO2 12/28/16 15:40 97.8 65 17 132/60 (84) 98 Room Air Orders Orders Electrocardiogram (12/28/16 14:48) Complete Blood Count With Diff (12/28/16 14:48) Comprehensive Metabolic Panel (12/28/16 14:48) Magnesium (Mg) (12/28/16 14:48) Ckmb (Isoenzyme) Profile (12/28/16 14:48) Troponin I (12/28/16 14:48) Chest, Single Ap (12/28/16 14:48) Blood Glucose (12/28/16 14:48) Ecg Monitoring (12/28/16 14:48) Iv Access Insert/Monitor (12/28/16 14:48) Orthostatic Vital Signs (12/28/16 14:48) Knee, Complete (4vws) (12/28/16 ) Admit Order (Ed Use Only) (12/28/16 17:17) Labs Laboratory Tests Test 12/28/16 15:00 White Blood Count 7.8 TH/MM3 Red Blood Count 4.36 MIL/MM3 Hemoglobin 12.3 GM/DL Hematocrit 37.2 % Mean Corpuscular Volume 85.2 FL Mean Corpuscular Hemoglobin 28.2 PG Mean Corpuscular Hemoglobin Concent 33.1 % Red Cell Distribution Width 15.2 % Platelet Count 211 TH/MM3 Mean Platelet Volume 7.7 FL Neutrophils (%) (Auto) 54.8 % Lymphocytes (%) (Auto) 30.0 % Monocytes (%) (Auto) 12.4 % Eosinophils (%) (Auto) 2.0 % Basophils (%) (Auto) 0.8 % Neutrophils # (Auto) 4.3 TH/MM3 Lymphocytes # (Auto) 2.4 TH/MM3 Monocytes # (Auto) 1.0 TH/MM3 Eosinophils # (Auto) 0.2 TH/MM3 Basophils # (Auto) 0.1 TH/MM3 CBC Comment DIFF FINAL Differential Comment Blood Urea Nitrogen 20 MG/DL Creatinine 0.93 MG/DL Random Glucose 107 MG/DL Total Protein 6.5 GM/DL Albumin 3.0 GM/DL Calcium Level 8.5 MG/DL Magnesium Level 2.2 MG/DL Alkaline Phosphatase 115 U/L Aspartate Amino Transf (AST/SGOT) 18 U/L Alanine Aminotransferase (ALT/SGPT) 21 U/L Total Bilirubin 0.4 MG/DL Sodium Level 138 MEQ/L Potassium Level 4.0 MEQ/L Chloride Level 104 MEQ/L Carbon Dioxide Level 28.3 MEQ/L Anion Gap 6 MEQ/L Estimat Glomerular Filtration Rate 57 ML/MIN Total Creatine Kinase 84 U/L Troponin I LESS THAN 0.02 NG/ML MDM Medical Decision Making Medical Screen Exam Complete: Yes Emergency Medical Condition: Yes Medical Record Reviewed: Yes Interpretation(s) EKG sinus rhythm with occasional SVTs. Differential Diagnosis Arrhythmia, electrolyte abnormality, orthostatic hypotension, vasovagal reaction , gastroenteritis, acute coronary syndrome, pulmonary embolism Narrative Course The patient was placed on ECG monitoring pulse oximetry. Twelve-lead EKG will be obtained. The patient is currently receiving 1 L of IV fluids started by EMS. Plan is for basic lab work, chest x-ray. 1527: Eveline arrived and is concerned that the patient may have taken some of her 's medication. Specifically she is concerned that she took one dose of Plavix 75 mg, sertraline 50 mg quetiapine by accident. The daughter also reports that she was present when this event happened today and she reports that after the patient sat in the chair she did have a syncopal event and then vomited. She is also requesting an x-ray of the left knee, she's been having left knee pain and outpatient x-rays been ordered but not completed. Lab work has been reviewed. BUN is 20, abdomen 3, otherwise unremarkable. The patient is being admitted for observation. Diagnosis Primary Impression: Syncope Qualified Codes: R55 - Syncope and collapse Admitting Information Admitting Physician Requests: Observation Misha Glez Dec 28, 2016 14:55
[2016-12-28] MEDS ORDERED: ASPI81CH PO (15:36)
--- NOTE | 2016-12-28 15:55 | RADRPT ---
EXAM DATE/TIME: 12/28/2016 15:06 [facility] COMPARISON: CHEST SINGLE AP, August 29, 2016, 18:14. INDICATIONS : Syncope MEDICAL HISTORY : Congestive heart failure. SURGICAL HISTORY : CABG. coronary artery stents ENCOUNTER: Initial ACUITY: 1 day PAIN SCORE: 0/10 LOCATION: Bilateral chest FINDINGS: Minimal parenchymal opacities present at the left lung base. Right lung is clear. Cardiac contours ar e stable and satisfactory. Sternotomy wires are present. CONCLUSION: Minimal left base parenchymal opacity. Riaz Godwin MD on December 28, 2016 at 15:52 Board Certified Radiologist. This report was verified electronically.
[2016-12-28 16:15] LABS: AUTOMATED NEUTROPHIL # 4.3 TH/MM3 (1.8-7.7); BASOPHIL # 0.1 TH/MM3 (0-0.2); BASOPHIL % 0.8 % (0.0-2.0); EOSINOPHIL # 0.2 TH/MM3 (0-0.4); HEMATOCRIT 37.2 % (35.0-46.0); HEMO FLAGS DIFF FINAL; LYMPHOCYTE # 2.4 TH/MM3 (1.0-4.8); MEAN CELL VOLUME 85.2 FL (80.0-100.0); MEAN CORPUSCULAR HEMOGLOBIN 28.2 PG (27.0-34.0); MEAN CORPUSCULAR HGB CONC 33.1 % (32.0-36.0); MONO % 12.4 % (0.0-8.0); NEUT % 54.8 % (16.0-70.0); PLATELET COUNT 211 TH/MM3 (150-450); RED BLOOD COUNT 4.36 MIL/MM3 (4.00-5.30); RED CELL DISTRIBUTION WIDTH 15.2 % (11.6-17.2); WHITE BLOOD COUNT 7.8 TH/MM3 (4.0-11.0)
--- NOTE | 2016-12-28 16:21 | RADRPT ---
EXAM DATE/TIME: 12/28/2016 16:02 [facility] COMPARISON: No previous studies available for comparison. INDICATIONS : Pain when walking. MEDICAL HISTORY : None. SURGICAL HISTORY : None. ENCOUNTER: Initial ACUITY: 1 week PAIN SCORE: 3/10 LOCATION: Left Knee FINDINGS: Moderate medial joint space narrowing with associated osteophyte formation. There is also moderate pa tellofemoral degenerative osteoarthritis. Osseous structures are intact without evidence for acute gio [place] fracture or focal bony destruction. No significant joint effusion. CONCLUSION: 1. 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 Satish Marvin MD on December 28, 2016 at 16:19 Board Certified Radiologist. This report was verified electronically.
[2016-12-28 16:23] LABS: ALT (GPT) 21 U/L (10-53); ANION GAP 6 MEQ/L (5-15); AST (GOT) 18 U/L (15-37); BICARBONATE 28.3 MEQ/L (21.0-32.0); BLOOD UREA NITROGEN 20 MG/DL (7-18); CHLORIDE 104 MEQ/L (98-107); GLOMERULAR FILTRATION RATE 57 ML/MIN (>89); MAGNESIUM 2.2 MG/DL (1.5-2.5); SODIUM (NA) 138 MEQ/L (136-145)
[2016-12-28 16:27] LABS: ALKALINE PHOSPHATASE 115 U/L (45-117); TOTAL BILIRUBIN ADULT 0.4 MG/DL (0.2-1.0)
[2016-12-28 16:44] LABS: CREATINE KINASE 84 U/L (26-192)
[2016-12-28] MEDS ORDERED: ACETAMINOPHEN 325 MG TAB PO PRN ×2 (17:30)
[2016-12-28] MEDS ORDERED: SODIUM CHLORIDE 0.9% FLUSH 10 ML FLUSH IV FLUSH PRN (17:30)
[2016-12-28] MEDS ORDERED: MAGNESIUM HYDROXIDE SUSP 30 ML CUP PO PRN (17:30)
[2016-12-28] MEDS ORDERED: ONDANSETRON HCL 4 MG/2 ML VIAL IVP PRN (17:30)
[2016-12-28] MEDS ORDERED: NALOXONE HCL 0.4 MG/ML AMP IV PUSH PRN (17:30)
--- NOTE | 2016-12-28 17:40 | HHI.HP ---
HPI Service [facility] Primary Care Physician Dinh Gonzalez MD Admission Diagnosis syncope Diagnoses: (1) CAD (coronary artery disease) (2) Hyperlipidemia (3) HTN (hypertension) (4) Syncope Chief Complaint: Syncope Nausea and vomiting Travel History International Travel<30 Days: No Contact w/Intl Traveler <30 Da: No Traveled to Known Affected Are: No History of Present Illness Written by Sushila Uriarte, acting as scribe for Dr. Lynn on 12/28/16 at 17:39. Mrs. Lamas is an 86-year-old female patient with a known medical history of CAD with stent placement x 5, hyperlipidemia and arthritis who presented to the ED status post syncopal episode. Patient states she was walking in [employer] with her daughter when all of a sudden became weak, vomited x 1 and passed out. She states she doesn't remember anything after that. Denies any witness of hitting her head. Patient states she did take her medications today, with the possibility of maybe taking a couple of her husbands medications on accident but is unsure. Denies any recent illness including fever, chills, cough, shortness of breath, abdominal pain, diarrhea or dysuria. Denies any recent dizziness, blurry vision, headache or diplopia. Patient lives at home with and performs all ADLs independently. Patient's PCP is Dr. Gonzalez and was last seen yesterday with no recent change in medications and no change in health status. Strategic Account Director is Dr. Alves. Review of Systems Constitutional: COMPLAINS OF: Fatigue, DENIES: Fever, Chills, Change in appetite Ears, nose, mouth, throat: DENIES: Hearing loss, Vertigo, Throat pain, Ear Pain Respiratory: DENIES: Cough, Shortness of breath Cardiovascular: COMPLAINS OF: Syncope (near), DENIES: Chest pain, Palpitations Gastrointestinal: COMPLAINS OF: Nausea, Vomiting, DENIES: Abdominal pain, Bloody stools, Constipation, Diarrhea Musculoskeletal: DENIES: Joint pain Psychiatric: DENIES: Anxiety Except as stated in HPI: all other systems reviewed are Neg Past Family Social History Past Medical History Arthritis CAD x 5 stents Hyperlipidemia Past Surgical History Appendectomy Pericardium removal x 40 years ago. Coronary stents x 5 Tonsillectomy Reported Medications Reported Meds & Active Scripts Active Reported Aspirin 81 Mg Chew 81 Mg PO DAILY Pantoprazole (Pantoprazole Sodium) 40 Mg Tab 40 Mg PO DAILY Carvedilol 6.25 Mg Tab 6.25 Mg PO BID Isosorbide Mononitrate ER (Isosorbide Mononitrate) 60 Mg Tab 60 Mg PO DAILY Zetia (Ezetimibe) 10 Mg Tab 10 Mg PO DAILY Losartan (Losartan Potassium) 25 Mg Tab 25 Mg PO DAILY Hydrochlorothiazide 25 Mg Tab 25 Mg PO DAILY Nitrostat SL (Nitroglycerin) 0.4 Mg Subl 0.4 Mg SL DIRECTED PRN 1 tablet under the tongue as needed for chest pain. Repeat every 5 minutes for a total of 3 DOSES or call 911 if NO relief. Crestor (Rosuvastatin Calcium) 40 Mg Tab 40 Mg PO DAILY Allergies: Coded Allergies: No Known Allergies (Unverified , 12/28/16) Active Ordered Medications Current Medications Medications (Trade) Dose Ordered Sig/Tata Route Start Time Stop Time Status Last Admin (NS Flush) 2 ml UNSCH PRN IV FLUSH 12/28/16 17:30 UNV (NS Flush) 2 ml BID IV FLUSH 12/28/16 21:00 UNV (Tylenol) 650 mg Q4H PRN PO 12/28/16 17:30 UNV (Zofran Inj) 4 mg Q6H PRN IVP 12/28/16 17:30 UNV (Tylenol) 650 mg Q6H PRN PO 12/28/16 17:30 UNV (Narcan Inj) 0.4 mg UNSCH PRN IV PUSH 12/28/16 17:30 UNV (Milk Of Magnesia Liq) 30 ml Q12H PRN PO 12/28/16 17:30 UNV Family History Maternal family medical history significant for hypertension. Social History Denies any tobacco use. Admits to occasional alcohol use. Denies any illicit drug use. Physical Exam Vital Signs Vital Signs Date Time Temp Pulse Resp B/P (MAP) Pulse Ox O2 Delivery O2 Flow Rate FiO2 12/28/16 15:40 97.8 65 17 132/60 (84) 98 Room Air 12/28/16 15:12 67 17 114/55 (74) 67 16 97/54 (68) 78 17 101/58 (72) 12/28/16 15:10 69 17 97 Room Air 12/28/16 14:45 98.8 88 17 126/62 (83) Physical Exam GENERAL: This is a well-nourished, well-developed female patient, in no apparent distress. SKIN: No rashes, ecchymoses or lesions. Warm and dry. HEENT: Atraumatic. Normocephalic. Pupils equal round and reactive. Extraocular motions intact. No scleral icterus. No injection or drainage. Nose without bleeding, purulent drainage or septal hematoma. Airway patent. NECK: Trachea midline. No JVD or lymphadenopathy. Supple, nontender, no meningeal signs. CARDIOVASCULAR: Regular rate and rhythm without murmurs, gallops, or rubs. RESPIRATORY: Clear to auscultation. Breath sounds equal bilaterally. No wheezes , rales, or rhonchi. GASTROINTESTINAL: Abdomen soft, non-tender, nondistended. No guarding. MUSCULOSKELETAL: Extremities without clubbing, cyanosis, or edema. No joint tenderness, effusion, or edema noted. NEUROLOGICAL: Awake and alert. Cranial nerves II through XII intact. Motor and sensory grossly within normal limits. Five out of 5 muscle strength in all muscle groups. Normal speech. Laboratory Laboratory Tests Test 12/28/16 15:00 White Blood Count 7.8 Red Blood Count 4.36 Hemoglobin 12.3 Hematocrit 37.2 Mean Corpuscular Volume 85.2 Mean Corpuscular Hemoglobin 28.2 Mean Corpuscular Hemoglobin Concent 33.1 Red Cell Distribution Width 15.2 Platelet Count 211 Mean Platelet Volume 7.7 Neutrophils (%) (Auto) 54.8 Lymphocytes (%) (Auto) 30.0 Monocytes (%) (Auto) 12.4 Eosinophils (%) (Auto) 2.0 Basophils (%) (Auto) 0.8 Neutrophils # (Auto) 4.3 Lymphocytes # (Auto) 2.4 Monocytes # (Auto) 1.0 Eosinophils # (Auto) 0.2 Basophils # (Auto) 0.1 CBC Comment DIFF FINAL Differential Comment Blood Urea Nitrogen 20 Creatinine 0.93 Random Glucose 107 Total Protein 6.5 Albumin 3.0 Calcium Level 8.5 Magnesium Level 2.2 Alkaline Phosphatase 115 Aspartate Amino Transf (AST/SGOT) 18 Alanine Aminotransferase (ALT/SGPT) 21 Total Bilirubin 0.4 Sodium Level 138 Potassium Level 4.0 Chloride Level 104 Carbon Dioxide Level 28.3 Anion Gap 6 Estimat Glomerular Filtration Rate 57 Total Creatine Kinase 84 Troponin I LESS THAN 0.02 Result Diagram: 12/28/16 1500 12/28/16 1500 Imaging Last Impressions Chest X-Ray 12/28/16 1448 Signed Impressions: Service Date/Time: Wednesday, December 28, 2016 15:06 - CONCLUSION: Minimal left base parenchymal opacity. Riaz Godwin MD Knee X-Ray 12/28/16 0000 Signed Impressions: Service Date/Time: Wednesday, December 28, 2016 16:02 - CONCLUSION: 1. 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 MD Fina Alfonso VTE Risk Assessment Fina VTE Risk Assessment: Mod/High Risk (score >= 2) Caprini Risk Assessment Model Point Value = 1 Point Value = 2 Point Value = 3 Point Value = 5 Age 41-60 Minor surgery BMI > 25 kg/m2 Swollen legs Varicose veins or History of unexplained or recurrent spontaneous Oral contraceptives or hormone replacement Sepsis (< 1 month) Serious lung disease, including pneumonia (< 1 month) Abnormal pulmonary function Acute myocardial infarction Congestive heart failure (< 1 month) History of inflammatory bowel disease Medical patient at bed rest Age 61-74 Arthroscopic surgery Major open surgery (> 45 min) Laparoscopic surgery (> 45 min) Malignancy Confined to bed (> 72 hours) Immobilizing plaster cast Central venous access Age >= 75 History of VTE Family history of VTE Factor V Leiden Prothrombin [id number] Lupus anticoagulant Anticardiolipin antibodies Elevated serum homocysteine Heparin-induced thrombocytopenia Other congenital or acquired thrombophilia Stroke (< 1 month) Elective arthroplasty Hip, pelvis, or leg fracture Acute spinal cord injury (< 1 month) Prophylaxis Regimen Total Risk Factor Score Risk Level Prophylaxis Regimen 0-1 Low Early ambulation 2 Moderate Order ONE of the following: *Sequential Compression Device (SCD) *Heparin 5000 units SQ BID 3-4 Higher Order ONE of the following medications: *Heparin 5000 units SQ TID *Enoxaparin/Lovenox 40 mg SQ daily (WT < 150 kg, CrCl > 30 mL/min) *Enoxaparin/Lovenox 30 mg SQ daily (WT < 150 kg, CrCl > 10-29 mL/min) *Enoxaparin/Lovenox 30 mg SQ BID (WT < 150 kg, CrCl > 30 mL/min) AND/OR *Sequential Compression Device (SCD) 5 or more Highest Order ONE of the following medications: *Heparin 5000 units SQ TID (Preferred with Epidurals) *Enoxaparin/Lovenox 40 mg SQ daily (WT < 150 kg, CrCl > 30 mL/min) *Enoxaparin/Lovenox 30 mg SQ daily (WT < 150 kg, CrCl > 10-29 mL/min) *Enoxaparin/Lovenox 30 mg SQ BID (WT < 150 kg, CrCl > 30 mL/min) AND *Sequential Compression Device (SCD) Assessment and Plan Assessment and Plan Mrs. Lamas is an 86-year-old female patient with a known medical history of CAD with stent placement x 5, hyperlipidemia and arthritis who presented to the ED status post syncopal episode. Patient states she was walking in [employer] with her daughter when all of a sudden became weak, vomited x 1 and passed out. Syncopal episode Nausea and vomiting - Patient will be placed in observation and be monitored overnight. - Continue cardiac telemetry. Monitor closely for any arrhythmias. - CBC and BMP reviewed, essentially unremarkable. Initial troponins flat. - CXR reviewed showing minimal left base parenchymal opacity. - Orthostatic blood pressures ordered and reviewed, showing no significance. - Zofran available PRN. - Encourage PO hydration. Monitor intake and output. History of CAD with stent placement: Continue heart healthy diet. Continue home Imdur, HCTZ, Carvedilol and Losartan with strict BP and HR parameters. Follow BP trend closely. Continue home aspirin. Hyperlipidemia: Continue home Zetia and Crestor. GERD/GI Prophylaxis: Protonix. DVT Prophylaxis: SCDs. This note was transcribed by vargas Uriarte. I, Dr. Isidoro Lynn personally performed the history, physical exam, and medical decision making; and confirmed the accuracy of the information in the transcribed note. Authenticated by Dr. Isidoro Lynn on 12/28/16 at 17:39. Code Status Full code Discussed Condition With Patient, son, ED PA Problem Qualifiers (1) Syncope: Qualified Codes: R55 - Syncope and collapse Sushila Uriarte Dec 28, 2016 17:40 Isidoro Lynn MD Dec 28, 2016 17:41
[2016-12-28] MEDS: CARVEDILOL 6.25 MG TAB PO SCH (21:14)
[2016-12-28] MEDS: SODIUM CHLORIDE 0.9% FLUSH 10 ML FLUSH IV FLUSH SCH (21:14)
[2016-12-29] MEDS ORDERED: NITROGLYCERIN 2% OINT 1 GM PACKET TOPICAL PRN (01:15)
[2016-12-29 03:27] VITALS: BP 136/68; PULSE 77; RESP 17; TEMP 98.2; O2SAT 97
--- NOTE | 2016-12-29 05:12 | EKG ---
Date Performed: 12/28/2016 Time Performed: 15:15:00 PTAGE: 86 years EKG: Sinus rhythm WITH OCCASIONAL SUPRAVENTRICULAR PREMATURE COMPLEXES POSSIBLE RIGHT VENTRICULAR CONDUCTION DELAY BOR DERLINE ECG PREVIOUS TRACING : 08/29/2016 17.49 DOCTOR: Ac Mortensen Interpretating Date/Time 12/29/2016 05:06:55
[2016-12-29] MEDS ORDERED: PANTOPRAZOLE SOD 40 MG DELAYED RELEASE TAB PO SCH (06:00)
[2016-12-29 06:53] LABS: BASOPHIL # 0.1 TH/MM3 (0-0.2); BASOPHIL % 0.7 % (0.0-2.0); EOSINOPHIL # 0.2 TH/MM3 (0-0.4); EOSINOPHIL % 2.5 % (0.0-4.0); HEMO FLAGS DIFF FINAL; LYMPH % 32.4 % (9.0-44.0); LYMPHOCYTE # 2.5 TH/MM3 (1.0-4.8); MEAN CELL VOLUME 84.4 FL (80.0-100.0); MEAN CORPUSCULAR HEMOGLOBIN 27.7 PG (27.0-34.0); MEAN CORPUSCULAR HGB CONC 32.8 % (32.0-36.0); MONO % 11.4 % (0.0-8.0); PLATELET COUNT 202 TH/MM3 (150-450); RED BLOOD COUNT 4.51 MIL/MM3 (4.00-5.30); RED CELL DISTRIBUTION WIDTH 15.1 % (11.6-17.2); WHITE BLOOD COUNT 7.6 TH/MM3 (4.0-11.0)
[2016-12-29 07:03] LABS: ALT (GPT) 18 U/L (10-53); ANION GAP 8 MEQ/L (5-15); AST (GOT) 16 U/L (15-37); BICARBONATE 27.5 MEQ/L (21.0-32.0); BLOOD UREA NITROGEN 20 MG/DL (7-18); CHLORIDE 105 MEQ/L (98-107); GLOMERULAR FILTRATION RATE 68 ML/MIN (>89); POTASSIUM 3.9 MEQ/L (3.5-5.1); SODIUM (NA) 140 MEQ/L (136-145)
[2016-12-29 07:04] LABS: ALKALINE PHOSPHATASE 110 U/L (45-117); TOTAL BILIRUBIN ADULT 0.5 MG/DL (0.2-1.0)
[2016-12-29 08:35] VITALS: BP 123/67; PULSE 68; RESP 18; TEMP 97.9; O2SAT 96
[2016-12-29] MEDS ORDERED: ASPIRIN 81 MG CHEW TAB PO SCH (09:00)
[2016-12-29] MEDS ORDERED: ISOSORBIDE MONONITRATE 60 MG TAB PO SCH (09:00)
[2016-12-29] MEDS ORDERED: LOSARTAN 25 MG TAB PO SCH (09:00)
[2016-12-29] MEDS ORDERED: EZETIMIBE 10 MG TAB PO SCH (09:00)
[2016-12-29] MEDS ORDERED: HYDROCHLOROTHIAZIDE 25 MG TAB PO SCH (09:00)
[2016-12-29] MEDS ORDERED: ATORVASTATIN 80 MG TAB PO SCH (09:00)
[2016-12-29] MEDS: SODIUM CHLORIDE 0.9% FLUSH 10 ML FLUSH IV FLUSH SCH (09:28)
[2016-12-29] MEDS: CARVEDILOL 6.25 MG TAB PO SCH (09:28)
--- NOTE | 2016-12-29 11:33 | HHI.PR ---
Subjective Remarks Follow up syncope 12/29/16-patient seen and examined; no syncopal episode since admission. Tolerating PO well without any nausea or emesis. Objective Vitals Vital Signs Date Time Temp Pulse Resp B/P (MAP) Pulse Ox O2 Delivery O2 Flow Rate FiO2 12/29/16 08:35 97.9 68 18 123/67 (85) 96 12/29/16 03:27 98.2 77 17 136/68 (90) 97 12/28/16 23:33 98.1 73 17 91/48 (62) 93 12/28/16 19:27 98.2 71 16 107/56 (73) 97 12/28/16 18:48 98.0 76 17 108/76 (87) 99 12/28/16 17:45 98.0 72 16 107/69 (82) 98 Room Air 12/28/16 15:40 97.8 65 17 132/60 (84) 98 Room Air 12/28/16 15:12 67 17 114/55 (74) 67 16 97/54 (68) 78 17 101/58 (72) 12/28/16 15:10 69 17 97 Room Air 12/28/16 14:45 98.8 88 17 126/62 (83) I/O 12/28/16 12/28/16 12/28/16 12/29/16 12/29/16 12/29/16 06:59 14:59 22:59 06:59 14:59 22:59 Intake Total 200 ml Balance 200 ml Intake Oral 200 ml # Voids 1 1 # Bowel Movements 0 1 Result Diagram: 12/29/16 0550 12/29/16 0550 Imaging Last Impressions Chest X-Ray 12/28/16 1448 Signed Impressions: Service Date/Time: Wednesday, December 28, 2016 15:06 - CONCLUSION: Minimal left base parenchymal opacity. Riaz Godwin MD Knee X-Ray 12/28/16 0000 Signed Impressions: Service Date/Time: Wednesday, December 28, 2016 16:02 - CONCLUSION: 1. 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 Satish Marvin MD Objective Remarks GENERAL: NAD SKIN: Warm and dry. HEAD: Normocephalic. EYES: No scleral icterus. No injection or drainage. NECK: Supple, trachea midline. No JVD or lymphadenopathy. CARDIOVASCULAR: Regular rate and rhythm without murmurs, gallops, or rubs. RESPIRATORY: Breath sounds equal bilaterally. No accessory muscle use. GASTROINTESTINAL: Abdomen soft, non-tender, nondistended. MUSCULOSKELETAL: No cyanosis, or edema. BACK: Nontender without obvious deformity. No CVA tenderness. A/P Problem List: (1) CAD (coronary artery disease) ICD Code: I25.10 - Atherosclerotic heart disease of [place] coronary artery without angina pectoris Status: Chronic (2) Hyperlipidemia ICD Code: E78.5 - Hyperlipidemia, unspecified Status: Acute (3) HTN (hypertension) ICD Code: I10 - Essential (primary) hypertension Status: Chronic (4) Syncope ICD Code: R55 - Syncope and collapse Status: Resolved Assessment and Plan 86 yrs old female with Syncopal episode-Resolved Nausea and vomiting-Resolved - Continue cardiac telemetry. Monitor closely for any arrhythmias. - CBC and BMP reviewed, essentially unremarkable. Initial troponins flat. - CXR reviewed showing minimal left base parenchymal opacity. - Orthostatic blood pressures ordered and reviewed, showing no significance. - Zofran available PRN. - Encourage PO hydration. Monitor intake and output. History of CAD with stent placement: Continue heart healthy diet. Continue home Imdur, HCTZ, Carvedilol and Losartan with strict BP and HR parameters. Continue home aspirin. Hyperlipidemia: Continue home Zetia and Crestor. GERD/GI Prophylaxis: Protonix. DVT Prophylaxis: SCDs. Discharge Planning Discharge patient to home Condition on discharge: Improved Regular Diet as tolerated Ad Amanda activity Rx written:none Follow-up with primary care physician in 1 week Problem Qualifiers (1) Syncope: Qualified Codes: R55 - Syncope and collapse Isidoro Lynn MD Dec 29, 2016 11:32
[2016-12-29 12:08] VITALS: BP 104/63; PULSE 95; RESP 20; TEMP 97.9; O2SAT 96
== END 2016-12-29 14:14 | disposition home or self-care (01) ==
LOC: NEPC 14:26 → NEDA 17:19 → NEPGCP 18:55
PROVIDERS: ADMIT Hospitalist; ATTEND Hospitalist
DX: R55 Syncope and collapse (principal); R11.2 Nausea with vomiting, unspecified; I25.10 Atherosclerotic heart disease of native coronary artery without angina pectoris; I10 Essential (primary) hypertension; R07.9 Chest pain, unspecified; E78.00 Pure hypercholesterolemia, unspecified; M25.562 Pain in left knee; Z95.5 Presence of coronary angioplasty implant and graft; Z79.82 Long term (current) use of aspirin
CPT/HCPCS: 71010; 73564; 80053; 82550; 83735; 84484; 85025; 93005; 99285; G0378